=== PATIENT | male | born 1960 | race Two or more races ===

== ENCOUNTER 2017-10-09 18:45 | Emergency (ER) | payer OTHER ==
[~2017-10-09] VITALS: Ht 180.3 cm; Wt 97.5 kg
[2017-10-09] MEDS ORDERED: LISINOPRIL20 MG (19:34)
[2017-10-09] MEDS ORDERED: METFORMIN HCL500 MG (19:35)
[2017-10-09] MEDS ORDERED: SIMVASTATIN10 MG (19:35)
[2017-10-09] MEDS ORDERED: ASPIR 8181 MG (19:36)
== END 2017-10-09 23:39 | disposition home or self-care (01) ==
LOC: ER 18:45
DX: G44.209 Tension-type headache, unspecified, not intractable (principal)